=== PATIENT | female | born 1970 | race American Indian/Alaskan Native ===

== ENCOUNTER 2019-01-06 17:12 | Inpatient (IN) | payer OTHER ==
--- NOTE | 2019-01-06 17:40 | Emergency Department Report ---
Blank Doc - Documentation Documentation: This is a 48-year-old female that presents with chest pain with radiation of l eft arm. Denies any SOB. This initial assessment/diagnostic orders/clinical plan/treatment(s) is/are subject to change based on patient's health status, clinical progression and re- assessment by fellow clinical providers in the ED. Further treatment and workup at subsequent clinical providers discretion. Patient/guardians urged not to elope from the ED as their condition may be serious if not clinically assessed and managed. Initial orders include: 1- Patient sent to [facility] for further evaluation and treatment 2- labs 3- EKG 4- CXR
[2019-01-06 18:21] LABS: BUN/Creatinine Ratio 13; Blood Urea Nitrogen 9 mg/dL (7-17); Calcium 8.9 mg/dL (8.4-10.2); Hemolysis Index 0
[2019-01-06 18:29] LABS: Basophils # (Auto) 0.1 K/mm3 (0.0-0.1); Basophils % (Auto) 0.8 % (0.0-1.8); Eosinophils # (Auto) 0.2 K/mm3 (0.0-0.4); Lymphocytes # (Auto) 1.7 K/mm3 (1.2-5.4); Lymphocytes % (Auto) 21.4 % (13.4-35.0); Mean Corpuscular HGB Conc 30 % (30-34); Mean Corpuscular Volume 73 fl (79-97); Monocytes # (Auto) 0.4 K/mm3 (0.0-0.8); Platelet Count 335 K/mm3 (140-440); Red Blood Count 5.38 M/mm3 (3.65-5.03)
[2019-01-06 18:30] LABS: Hemoglobin 11.7 gm/dl (10.1-14.3); INR 1.01 (0.87-1.13)
[2019-01-06 18:31] LABS: Hematocrit 39.2 % (30.3-42.9); Partial Thromboplastin Time 26.7 Sec. (24.2-36.6); Red Cell Distribution Width 21.7 % (13.2-15.2)
--- NOTE | 2019-01-06 21:24 | XRay Report ---
PROCEDURE: XR CHEST ROUTINE 2V TECHNIQUE: PA and lateral chest radiographs were obtained. HISTORY: Chest Pain COMPARISONS: None. FINDINGS: The cardiomediastinal silhouette appears normal. The lungs are clear. The bones and soft tissues are unremarkable. IMPRESSION: No evidence of acute cardiopulmonary disease. This document is electronically signed by Ivory Cotton MD., January 06 2019 10:22:57 PM ET
[2019-01-06] MEDS ORDERED: TORADOL IM ONE (22:52)
[2019-01-06] MEDS ORDERED: PERCOCET 5/325 PO ONE (22:52)
[2019-01-06] MEDS ORDERED: FLEXERIL PO ONE (22:52)
--- NOTE | 2019-01-06 23:05 | Emergency Department Report ---
ED Neuro Deficit HPI - General Chief Complaint: Chest Pain Stated Complaint: CHEST PAIN/LFT SIDE NUMB Time Seen by Provider: 01/06/19 17:38 Source: patient Mode of arrival: Ambulatory Limitations: No Limitations - History of Present Illness Initial Comments: 48-year-old female with a past medical history of obesity and hypertension presents complaining of waking up at 4:30p with left-sided neck pain, left-sided chest pain, and left arm and left leg numbness. Symptoms are constant. Left lower chest pain sharp and worse with movement and inspiration. Patient complains of paresthesias with numbness to the left arm and left leg. Patient also complains of mild left-sided headache. Complains of nausea, vomiting, diaphoresis, calf tenderness, leg edema, or recent travel. 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 She is compliant with her blood pressure medication. She reports having a negative stress test last year. - Related Data Allergies/Adverse Reactions: Allergies Allergy/AdvReac Type Severity Reaction Status Date / Time No Known Allergies Allergy Unverified 01/06/19 17:43 ED Review of Systems ROS: Stated complaint: CHEST PAIN/LFT SIDE NUMB Other details as noted in HPI ED Past Medical Hx - Past Medical History Hx Hypertension: Yes Additional medical history: fibroids - Surgical History Additional Surgical History: ablastion - Social History Smoking Status: Never Smoker Substance Use Type: None ED Neuro Physical Exam - General Limitations: No Limitations Suspected Stroke: Yes - NIHSS Assessment Interval: Baseline 1a. Level of Consciousness: alert/keenly responsive 1b. LOC Questions: answers both correctly 1c. LOC Commands: performs tasks correctly 2. Best Gaze: normal 3. Visual: no visual loss 4. Facial Palsy: normal symmetrical movement 5b. Motor Arm Right: no drift 5a. Motor Arm Left: no drift 6a. Motor Leg Left: no drift 6b. Motor Leg Right: no drift 7. Limb Ataxia: absent 8. Sensory: mild/moderate sensory loss 9. Best Language: no aphasia 10. Dysarthria: normal 11. Extinction/Inattention: no abnormality Total Score: 1 Stroke Severity: Minor Stroke - Other Other exam information: General: No limitations, patient is alert in no acute distress Head exam: Atraumatic, normocephalic Eyes exam: Normal appearance, pupils equal reactive to light, extraocular movements intact ENT: Moist mucous membrane Neck exam: Normal inspection, full range of motion, no meningismus, left-sided trapezius muscle tenderness Respiratory exam: Clear to auscultation bilateral, no wheezes, rales, crackles Cardiovascular: Normal rate and rhythm, normal heart sounds Abdomen: Soft, nondistended, and nontender, with normal bowel sounds, no rebound, or guarding Extremity: Full range of motion normal inspection no deformity Back: Normal Inspection, full range of motion, no tenderness Neurologic: Alert, oriented x3, cranial nerves intact, decrease sensation to touch to the left arm and left leg. 5/5 upper and lower extremity strength Psychiatric: normal affect, normal mood Skin: Warm, dry, intact ED Course Vital Signs 01/06/19 01/07/19 01/07/19 17:39 00:14 00:21 Temperature 98.9 F Pulse Rate 92 H 89 Respiratory 16 18 18 Rate Blood Pressure 121/79 Blood Pressure 137/76 [Left] O2 Sat by Pulse 98 97 97 Oximetry - Lab Data Result diagrams: 01/06/19 17:49 01/06/19 17:49 Lab Results 01/06/19 01/06/19 01/06/19 Range/Units 17:49 17:49 17:49 WBC 7.9 (4.5-11.0) K/mm3 RBC 5.38 H (3.65-5.03) M/mm3 Hgb 11.7 (10.1-14.3) gm/dl Hct 39.2 (30.3-42.9) % MCV 73 L (79-97) fl MCH 22 L (28-32) pg MCHC 30 (30-34) % RDW 21.7 H (13.2-15.2) % Plt Count 335 (140-440) K/mm3 Lymph % (Auto) 21.4 (13.4-35.0) % Noble % (Auto) 5.0 (0.0-7.3) % Eos % (Auto) 2.0 (0.0-4.3) % Baso % (Auto) 0.8 (0.0-1.8) % Lymph # 1.7 (1.2-5.4) K/mm3 Noble # 0.4 (0.0-0.8) K/mm3 Eos # 0.2 (0.0-0.4) K/mm3 Baso # 0.1 (0.0-0.1) K/mm3 Seg Neutrophils % 70.8 H (40.0-70.0) % Seg Neutrophils # 5.6 (1.8-7.7) K/mm3 PT 13.9 (12.2-14.9) Sec. INR 1.01 (0.87-1.13) APTT 26.7 (24.2-36.6) Sec. D-Dimer (0-234) ng/mlDDU Sodium 138 (137-145) mmol/L Potassium 3.7 (3.6-5.0) mmol/L Chloride 105.1 (98-107) mmol/L Carbon Dioxide 22 (22-30) mmol/L Anion Gap 15 mmol/L BUN 9 (7-17) mg/dL Creatinine 0.7 (0.7-1.2) mg/dL Estimated GFR > 60 ml/min BUN/Creatinine Ratio 13 % Glucose 95 (65-100) mg/dL Calcium 8.9 (8.4-10.2) mg/dL Troponin T < 0.010 (0.00-0.029) ng/mL HCG, Qual (Negative) 01/06/19 01/06/19 01/06/19 Range/Units 17:49 17:49 22:52 WBC (4.5-11.0) K/mm3 RBC (3.65-5.03) M/mm3 Hgb (10.1-14.3) gm/dl Hct (30.3-42.9) % MCV (79-97) fl MCH (28-32) pg MCHC (30-34) % RDW (13.2-15.2) % Plt Count (140-440) K/mm3 Lymph % (Auto) (13.4-35.0) % Noble % (Auto) (0.0-7.3) % Eos % (Auto) (0.0-4.3) % Baso % (Auto) (0.0-1.8) % Lymph # (1.2-5.4) K/mm3 Noble # (0.0-0.8) K/mm3 Eos # (0.0-0.4) K/mm3 Baso # (0.0-0.1) K/mm3 Seg Neutrophils % (40.0-70.0) % Seg Neutrophils # (1.8-7.7) K/mm3 PT (12.2-14.9) Sec. INR (0.87-1.13) APTT (24.2-36.6) Sec. D-Dimer 243.59 H (0-234) ng/mlDDU Sodium (137-145) mmol/L Potassium (3.6-5.0) mmol/L Chloride (98-107) mmol/L Carbon Dioxide (22-30) mmol/L Anion Gap mmol/L BUN (7-17) mg/dL Creatinine (0.7-1.2) mg/dL Estimated GFR ml/min BUN/Creatinine Ratio % Glucose (65-100) mg/dL Calcium (8.4-10.2) mg/dL Troponin T < 0.010 (0.00-0.029) ng/mL HCG, Qual Negative (Negative) - EKG Data -: EKG Interpreted by Ia EKG shows normal: sinus rhythm, axis (qrs 1), QRS complexes (qrsd 85), ST-T waves (no stemi) Rate: normal (88) - Radiology Data Radiology results: report reviewed PROCEDURE: XR CHEST ROUTINE 2V TECHNIQUE: PA and lateral chest radiographs were obtained. HISTORY: Chest Pain COMPARISONS: None. FINDINGS: The cardiomediastinal silhouette appears normal. The lungs are clear. The bones and soft tissues are unremarkable. IMPRESSION: No evidence of acute cardiopulmonary disease. PROCEDURE: CT HEAD/BRAIN WO CON TECHNIQUE: Computerized tomography of the head was performed without contrast material. HISTORY: left arm and leg paresthesia COMPARISONS: None . FINDINGS: Skull and scalp: Normal . Paranasal sinuses: Normal . Ventricles and subarachnoid spaces: Normal . Cerebrum: No evidence of hemorrhage, acute infarction or mass . Cerebellum and brainstem: No evidence of hemorrhage, acute infarction or mass . Vasculature: Normal . Other: None . IMPRESSION: No evidence of hemorrhage, acute infarction or mass . PROCEDURE: CT CERVICAL SPINE WO CON TECHNIQUE: Computerized tomography of the cervical spine was performed from the skull base to T1 without contrast material. HISTORY: left arm and leg paresthesia COMPARISONS: None . FINDINGS: No acute fracture or subluxation. Vertebral body heights are maintained. Disc osteophyte complexes seen at C5/C6 and C6/C7 with mild central canal stenosis.. Other: No additional findings . IMPRESSION: No acute fracture or subluxation. Mild degenerative changes seen at C5/C6 and C6/C7. PROCEDURE: NM LUNG SCAN PERF/VENT TECHNIQUE: 5.5 mCi Tc-99m MAA was injected IV for pulmonary perfusion imaging in multiple projections. 21.8 mCi xenon-133 gas was inhaled for pulmonary ventilation imaging in multiple projections. Injection site: RIGHT antecubital fossa. HISTORY: left cp, mild ddimer elevation COMPARISONS: January 06, 2019 . FINDINGS: Perfusion: No defects . Ventilation: No defects . IMPRESSION: Normal Examination . - Medical Decision Making Patient has decreased sensation to the left arm and they wish any further evalu ation. Symptoms may be due to either a stroke or herniated disc dz. I feel patient should be admitted for stroke rule out since it involves the left upper and left lower extremity. Patient will be admitted to the hospitalist service for further CVA workup - Differential Diagnosis cervical radiculopathy, CVA, PE, MSK pain, NM, ICH, intracranial mass - Thrombolytic Inclusion/Exclusion Thrombolytic Exclusion Criteria: Symptom Onset > 3 Hours Critical Care Time: No Critical care attestation.: If time is entered above; I have spent that time in minutes in the direct care of this critically ill patient, excluding procedure time. ED Disposition Clinical Impression: Left sided numbness, Left-sided chest pain, Obesity, HTN (hypertension) Disposition: DC-09 OP ADMIT IP TO THIS HOSP Is pt being admited?: Yes Does the pt Need Aspirin: Yes Condition: Stable Instructions: Hypertension (ED) Time of Disposition: 01:37 (Dr. Avila/hospitalist)
[2019-01-06] MEDS ORDERED: TORADOL IV ONE (23:27)
--- NOTE | 2019-01-07 00:10 | Cat Scan Report ---
PROCEDURE: CT HEAD/BRAIN WO CON TECHNIQUE: Computerized tomography of the head was performed without contrast material. HISTORY: left arm and leg paresthesia COMPARISONS: None . FINDINGS: Skull and scalp: Normal . Paranasal sinuses: Normal . Ventricles and subarachnoid spaces: Normal . Cerebrum: No evidence of hemorrhage, acute infarction or mass . Cerebellum and brainstem: No evidence of hemorrhage, acute infarction or mass . Vasculature: Normal . Other: None . IMPRESSION: No evidence of hemorrhage, acute infarction or mass . This document is electronically signed by Jose Guadalupe Rodríguez MD., January 07 2019 01:08:49 AM ET
--- NOTE | 2019-01-07 00:12 | Cat Scan Report ---
PROCEDURE: CT CERVICAL SPINE WO CON TECHNIQUE: Computerized tomography of the cervical spine was performed from the skull base to T1 wit hout contrast material. HISTORY: left arm and leg paresthesia COMPARISONS: None . FINDINGS: No acute fracture or subluxation. Vertebral body heights are maintained. Disc osteophyte complexes seen at C5/C6 and C6/C7 with mild central canal stenosis.. Other: No additional findings . IMPRESSION: No acute fracture or subluxation. Mild degenerative changes seen at C5/C6 and C6/C7. This document is electronically signed by Jose Guadalupe Rodríguez MD., January 07 2019 01:10:28 AM ET
--- NOTE | 2019-01-07 01:28 | Nuclear Medicine Report ---
PROCEDURE: NM LUNG SCAN PERF/VENT TECHNIQUE: 5.5 mCi Tc-99m MAA was injected IV for pulmonary perfusion imaging in multiple projection s. 21.8 mCi xenon-133 gas was inhaled for pulmonary ventilation imaging in multiple projections. Inje ction site: RIGHT antecubital fossa. HISTORY: left cp, mild ddimer elevation COMPARISONS: January 06, 2019 . FINDINGS: Perfusion: No defects . Ventilation: No defects . IMPRESSION: Normal Examination . This document is electronically signed by Prudence Angulo DO., January 07 2019 02:26:14 AM ET
[2019-01-07] MEDS ORDERED: ASPIRIN PO ONE (01:38)
[2019-01-07] MEDS ORDERED: MORPHINE IV ONE (01:41)
[2019-01-07] MEDS ORDERED: ZOFRAN IV ONE (01:41)
[2019-01-07] MEDS ORDERED: BENADRYL IV ONE (01:42)
[2019-01-07] MEDS ORDERED: MORPHINE IV PRN (02:38)
[2019-01-07] MEDS ORDERED: SODIUM CHLORIDE FLUSH SYRINGE 10 ML IV PRN ×3 (02:38)
[2019-01-07] MEDS ORDERED: TYLENOL PO PRN ×2 (02:38)
[2019-01-07] MEDS ORDERED: NITROSTAT SL PRN (02:40)
[2019-01-07] MEDS ORDERED: APRESOLINE IV PRN (02:59)
--- NOTE | 2019-01-07 03:05 | History and Physical Report ---
<TAMIE OCAMPO - Last Filed: 01/07/19 03:27> History of Present Illness Date of examination: 01/07/19 Date of admission: 01/07/2019 Chief complaint: Left-sided headache, left upper and left lower extremity paresthesia History of present illness: 48-year-old Fisher Eel Spear who is an obese -[place] female with history of obesity, and hypertension presents to [facility] ED with complaints of left sided paraesthesia with numbness. Pt states that her symptoms began when she woke up from a nap around 4:30pm yesterday afternoon. She experienced left sided blurred vision, left-sided neck pain, left-sided nonradiating chest pain, left calf pain, and left arm and left leg numbness. She states that her symptoms have not resolved. She describes her chest pain as sharp and rates it 9/10. Her chest pain is aggravated with movement and relieved with rest. She reports that her headache is mild 3/10, and there are no aggravating or relieving factors. Pt reports having a stress test done last year and it was negative. Denies: cough, hemoptysis, fever, nausea, vomiting, diaphoresis, recent travel, recent sick exposure. Past History Past Medical History: hypertension, other ( fibroids) Past Surgical History: Other (uterine ablation) Social history: lives with family Family history: no significant family history Medications and Allergies Allergies Allergy/AdvReac Type Severity Reaction Status Date / Time No Known Allergies Allergy Unverified 01/06/19 17:43 Active Meds: Active Medications Acetaminophen (Tylenol) 650 mg PO Q4H PRN PRN Reason: Pain MILD(1-3)/Fever >100.5/ARNDT Acetaminophen (Tylenol) 650 mg PO Q4H PRN PRN Reason: Pain, Mild (1-3) Aspirin (Aspirin) 325 mg PO QDAY YECENIA Aspirin (Baby Aspirin) 81 mg PO QDAY YECENIA Atorvastatin Calcium (Lipitor) 20 mg PO QHS YECENIA Enoxaparin Sodium (Lovenox) 40 mg SUB-Q QDAY YECENIA Hydralazine HCl (Apresoline) 10 mg IV Q4HR PRN PRN Reason: Blood Pressure Hydromorphone HCl (Dilaudid) 0.5 mg IV Q3H PRN PRN Reason: Pain , Severe (7-10) Stop: 01/07/19 23:59 Morphine Sulfate (Morphine) 2 mg IV Q4H PRN PRN Reason: Pain, Moderate (4-6) Stop: 01/07/19 23:59 Nitroglycerin (Nitrostat) 0.4 mg SL Q5M PRN PRN Reason: Chest Pain Ondansetron HCl (Zofran) 4 mg IV Q8H PRN PRN Reason: Nausea And Vomiting Sodium Chloride (Sodium Chloride Flush Syringe 10 Ml) 10 ml IV BID YECENIA Sodium Chloride (Sodium Chloride Flush Syringe 10 Ml) 10 ml IV PRN PRN PRN Reason: LINE FLUSH Sodium Chloride (Sodium Chloride Flush Syringe 10 Ml) 10 ml INJ PRN PRN PRN Reason: LINE FLUSH Sodium Chloride (Sodium Chloride Flush Syringe 10 Ml) 10 ml IV PRN PRN PRN Reason: LINE FLUSH Review of Systems All systems: negative (reviewed no additional remarkable complaints except as noted below) Eyes: left: blurred vision (slightly blurred) Cardiovascular: chest pain (left-sided nonradiating) Musculoskeletal: arm numbness/tingling (left-sided), leg numbness/tingling (left-sided) Neurological: headaches (left sided) Exam - Physical Exam Narrative exam: Physical exam General appearance: Present: No acute distress, alert and oriented 3, obese, pleasant, adult female - EENT Eyes: Present: PERRL, EOM intact ENT: hearing intact, normal dentition - Neck Neck: Present: supple, normal ROM - Respiratory Respiratory effort: Non-labored Respiratory: bilateral: diminished (bases) - Cardiovascular Heart rate: 88 (bpm) Rhythm: Sinus rhythm , regular Heart Sounds: Present: S1 & S2. Absent: rub, click - Extremities Extremities: no ischemia, pulses intact, abnormal (trace edema to left lower extremity) - Peripheral Assessment Peripheral Pulses: within normal limits - Abdominal General gastrointestinal: Obese, soft, non-tender, normal bowel sounds x4 - Integumentary Integumentary: Present: warm, dry - Musculoskeletal Musculoskeletal: Able to move all extremities - Psychiatric Psychiatric: cooperative - Constitutional Vitals: Temp Pulse Resp BP Pulse Ox 98.9 F 77 18 116/56 97 01/06/19 17:39 01/07/19 02:03 01/07/19 02:03 01/07/19 02:03 01/07/19 02:03 Results - Labs CBC & Chem 7: 01/06/19 17:49 01/06/19 17:49 Labs: Laboratory Last Values WBC 7.9 K/mm3 (4.5-11.0) 01/06/19 17:49 RBC 5.38 M/mm3 (3.65-5.03) H 01/06/19 17:49 Hgb 11.7 gm/dl (10.1-14.3) 01/06/19 17:49 Hct 39.2 % (30.3-42.9) 01/06/19 17:49 MCV 73 fl (79-97) L 01/06/19 17:49 MCH 22 pg (28-32) L 01/06/19 17:49 MCHC 30 % (30-34) 01/06/19 17:49 RDW 21.7 % (13.2-15.2) H 01/06/19 17:49 Plt Count 335 K/mm3 (140-440) 01/06/19 17:49 Lymph % (Auto) 21.4 % (13.4-35.0) 01/06/19 17:49 Haskell % (Auto) 5.0 % (0.0-7.3) 01/06/19 17:49 Eos % (Auto) 2.0 % (0.0-4.3) 01/06/19 17:49 Baso % (Auto) 0.8 % (0.0-1.8) 01/06/19 17:49 Lymph # 1.7 K/mm3 (1.2-5.4) 01/06/19 17:49 Haskell # 0.4 K/mm3 (0.0-0.8) 01/06/19 17:49 Eos # 0.2 K/mm3 (0.0-0.4) 01/06/19 17:49 Baso # 0.1 K/mm3 (0.0-0.1) 01/06/19 17:49 Seg Neutrophils % 70.8 % (40.0-70.0) H 01/06/19 17:49 Seg Neutrophils # 5.6 K/mm3 (1.8-7.7) 01/06/19 17:49 PT 13.9 Sec. (12.2-14.9) 01/06/19 17:49 INR 1.01 (0.87-1.13) 01/06/19 17:49 APTT 26.7 Sec. (24.2-36.6) 01/06/19 17:49 243.59 ng/mlDDU (0-234) H 01/06/19 17:49 Sodium 138 mmol/L (137-145) 01/06/19 17:49 Potassium 3.7 mmol/L (3.6-5.0) 01/06/19 17:49 Chloride 105.1 mmol/L (98-107) 01/06/19 17:49 Carbon Dioxide 22 mmol/L (22-30) 01/06/19 17:49 15 mmol/L 01/06/19 17:49 BUN 9 mg/dL (7-17) 01/06/19 17:49 0.7 mg/dL (0.7-1.2) 01/06/19 17:49 Estimated GFR > 60 ml/min 01/06/19 17:49 13 % 01/06/19 17:49 Glucose 95 mg/dL (65-100) 01/06/19 17:49 Calcium 8.9 mg/dL (8.4-10.2) 01/06/19 17:49 < 0.010 ng/mL (0.00-0.029) 01/06/19 22:52 HCG, Qual Negative (Negative) 01/06/19 17:49 - Imaging and Cardiology EKG: image reviewed (sinus rhythm, 80 bpm) Chest x-ray: report reviewed (No evidence of acute cardiopulmonary disease. ), image reviewed CT Scan - head: report reviewed (No evidence of hemorrhage, acute infarction or mass ), image reviewed Imaging and Cardiology: CT Cervical Spine: Findings: No acute fracture or subluxation. Mild degenerative changes seen at C5/C6 and C6/C7. V/Q Scan: Perfusion: No defects . Ventilation: No defects . IMPRESSION: Normal Examination . 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 EKG showed sinus rhythm at 80bpm, unrevealing for acute ischemic abnormalities. CXR unrevealing for acute cardiopulmonary abnormalities. CT head did not reveal any evidence of hemorrhage, acute infarct,or mass. CT Cervical Spine showed mild degenerative changes at C5/C6 and C6/C7. D-Dimer slightly elevated at 243.59. V/Q scan did not reveal any defects in ventilation perfusion. Pt will be admitted to Telemetry unit for further evaluation. Acute Chest Pain R/O ACS Lt sided numbness R/O CVA R/O DVT HTN Obesity Plan: Continue Supportive Care Initiate stroke protocol Neurochecks per stroke protocol Pain management NPO Lexiscan pending Bilateral LLE Doppler pending MRI/MRA Brain pending Neurology Consult pending Monitor BP IV hydralazine when necessary Start ASA, Statin May benefit from OP weight management program DVT PPX on Lovenox and SCD's Medication Reconciliation pending Advance Directives: No VTE prophylaxis?: Chemical Plan of care discussed with patient/family: Yes <BRENTON ARENAS - Last Filed: 01/07/19 06:48> History of Present Illness Date of admission: 01/07/19 02:38 Medications and Allergies Active Meds: Active Medications Acetaminophen (Tylenol) 650 mg PO Q4H PRN PRN Reason: Pain, Mild (1-3) Aspirin (Baby Aspirin) 81 mg PO QDAY YECENIA Atorvastatin Calcium (Lipitor) 20 mg PO QHS YECENIA Enoxaparin Sodium (Lovenox) 40 mg SUB-Q QDAY YECENIA Hydralazine HCl (Apresoline) 10 mg IV Q4H PRN PRN Reason: Blood Pressure Hydromorphone HCl (Dilaudid) 0.5 mg IV Q3H PRN PRN Reason: Pain , Severe (7-10) Stop: 01/07/19 23:59 Morphine Sulfate (Morphine) 2 mg IV Q4H PRN PRN Reason: Pain, Moderate (4-6) Stop: 01/07/19 23:59 Nitroglycerin (Nitrostat) 0.4 mg SL Q5M PRN PRN Reason: Chest Pain Ondansetron HCl (Zofran) 4 mg IV Q8H PRN PRN Reason: Nausea And Vomiting Sodium Chloride (Sodium Chloride Flush Syringe 10 Ml) 10 ml IV BID YECENIA Sodium Chloride (Sodium Chloride Flush Syringe 10 Ml) 10 ml IV PRN PRN PRN Reason: LINE FLUSH Exam - Constitutional Vitals: Temp Pulse Resp BP Pulse Ox 98.7 F 82 20 107/53 96 01/07/19 04:23 01/07/19 04:23 01/07/19 04:23 01/07/19 04:23 01/07/19 04:23 Results - Labs CBC & Chem 7: 01/06/19 17:49 01/06/19 17:49 Labs: Laboratory Last Values WBC 7.9 K/mm3 (4.5-11.0) 01/06/19 17:49 RBC 5.38 M/mm3 (3.65-5.03) H 01/06/19 17:49 Hgb 11.7 gm/dl (10.1-14.3) 01/06/19 17:49 Hct 39.2 % (30.3-42.9) 01/06/19 17:49 MCV 73 fl (79-97) L 01/06/19 17:49 MCH 22 pg (28-32) L 01/06/19 17:49 MCHC 30 % (30-34) 01/06/19 17:49 RDW 21.7 % (13.2-15.2) H 01/06/19 17:49 Plt Count 335 K/mm3 (140-440) 01/06/19 17:49 Lymph % (Auto) 21.4 % (13.4-35.0) 01/06/19 17:49 Haskell % (Auto) 5.0 % (0.0-7.3) 01/06/19 17:49 Eos % (Auto) 2.0 % (0.0-4.3) 01/06/19 17:49 Baso % (Auto) 0.8 % (0.0-1.8) 01/06/19 17:49 Lymph # 1.7 K/mm3 (1.2-5.4) 01/06/19 17:49 Haskell # 0.4 K/mm3 (0.0-0.8) 01/06/19 17:49 Eos # 0.2 K/mm3 (0.0-0.4) 01/06/19 17:49 Baso # 0.1 K/mm3 (0.0-0.1) 01/06/19 17:49 Seg Neutrophils % 70.8 % (40.0-70.0) H 01/06/19 17:49 Seg Neutrophils # 5.6 K/mm3 (1.8-7.7) 01/06/19 17:49 PT 13.9 Sec. (12.2-14.9) 01/06/19 17:49 INR 1.01 (0.87-1.13) 01/06/19 17:49 APTT 26.7 Sec. (24.2-36.6) 01/06/19 17:49 243.59 ng/mlDDU (0-234) H 01/06/19 17:49 Sodium 138 mmol/L (137-145) 01/06/19 17:49 Potassium 3.7 mmol/L (3.6-5.0) 01/06/19 17:49 Chloride 105.1 mmol/L (98-107) 01/06/19 17:49 Carbon Dioxide 22 mmol/L (22-30) 01/06/19 17:49 15 mmol/L 01/06/19 17:49 BUN 9 mg/dL (7-17) 01/06/19 17:49 0.7 mg/dL (0.7-1.2) 01/06/19 17:49 Estimated GFR > 60 ml/min 01/06/19 17:49 13 % 01/06/19 17:49 Glucose 95 mg/dL (65-100) 01/06/19 17:49 5.8 % (4-6) 01/07/19 Unknown Calcium 8.9 mg/dL (8.4-10.2) 01/06/19 17:49 < 0.010 ng/mL (0.00-0.029) 01/06/19 22:52 HCG, Qual Negative (Negative) 01/06/19 17:49 Assessment and Plan Assessment and plan: 48-year-old lady come emergency room with complaints of right-sided chest pain and left-sided numbness. Agree with as discussed above except add echo
[2019-01-07] MEDS ORDERED: ASPIRIN PO SCH (10:00)
--- NOTE | 2019-01-07 10:07 | Vascular Lab Report ---
PROCEDURE: VL VENOUS DUPLEX LE BILAT TECHNIQUE: Duplex Doppler sonography of the BILATERAL lower extremities. Thomas scale imaging with and without compression, spectral waveform analysis with and without augmentation, and color flow Dopple r were employed. HISTORY: LLE edema, CP COMPARISONS: None FINDINGS: RIGHT LOWER EXTREMITY: Deep Venous Thrombus: None Superficial Venous Thrombus: None Venous valvular incompetence: None Soft tissue abnormality: None LEFT LOWER EXTREMITY: Deep Venous Thrombus: None Superficial Venous Thrombus: None Venous valvular incompetence: None Soft tissue abnormality: None IMPRESSION: No evidence of deep venous thrombosis in the bilateral lower extremities. This document is electronically signed by Laura Moon MD., January 07 2019 11:04:45 AM ET
[2019-01-07] MEDS: LOVENOX SUB-Q SCH (11:52)
[2019-01-07] MEDS: SODIUM CHLORIDE FLUSH SYRINGE 10 ML IV SCH ×2 (11:52→21:59)
[2019-01-07] MEDS: DILAUDID IV PRN ×2 (11:55→22:04)
--- NOTE | 2019-01-07 14:10 | Consultation ---
Past History Past Medical History: hypertension, other ( fibroids) Past Surgical History: Other (uterine ablation) Social history: lives with family Family history: no significant family history Medications and Allergies Allergies Allergy/AdvReac Type Severity Reaction Status Date / Time No Known Allergies Allergy Unverified 01/06/19 17:43 Active Meds: Active Medications Acetaminophen (Tylenol) 650 mg PO Q4H PRN PRN Reason: Pain, Mild (1-3) Aspirin (Baby Aspirin) 81 mg PO QDAY [facility] Atorvastatin Calcium (Lipitor) 20 mg PO QHS [facility] Cyclobenzaprine HCl (Flexeril) 5 mg PO BID [facility] Enoxaparin Sodium (Lovenox) 40 mg SUB-Q QDAY [facility] Last Admin: 01/07/19 11:52 Dose: 40 mg Documented by: Hydralazine HCl (Apresoline) 10 mg IV Q4H PRN PRN Reason: Blood Pressure Hydromorphone HCl (Dilaudid) 0.5 mg IV Q3H PRN PRN Reason: Pain , Severe (7-10) Stop: 01/07/19 23:59 Last Admin: 01/07/19 11:55 Dose: 0.5 mg Documented by: Morphine Sulfate (Morphine) 2 mg IV Q4H PRN PRN Reason: Pain, Moderate (4-6) Stop: 01/07/19 23:59 Nitroglycerin (Nitrostat) 0.4 mg SL Q5M PRN PRN Reason: Chest Pain Ondansetron HCl (Zofran) 4 mg IV Q8H PRN PRN Reason: Nausea And Vomiting Sodium Chloride (Sodium Chloride Flush Syringe 10 Ml) 10 ml IV BID [facility] Last Admin: 01/07/19 11:52 Dose: 10 ml Documented by: Sodium Chloride (Sodium Chloride Flush Syringe 10 Ml) 10 ml IV PRN PRN PRN Reason: LINE FLUSH Physical Examination - Vital Signs Vital Signs: Vital Signs Temp Pulse Resp BP Pulse Ox 98.9 F 92 H 16 121/79 98 01/06/19 17:39 01/06/19 17:39 01/06/19 17:39 01/06/19 17:39 01/06/19 17:39 Results - Laboratory Findings CBC and BMP: 01/06/19 17:49 01/06/19 17:49 Abnormal Lab Findings: Abnormal Labs 01/06/19 01/06/19 17:49 17:49 RBC 5.38 H MCV 73 L MCH 22 L RDW 21.7 H Seg Neutrophils % 70.8 H D-Dimer 243.59 H Assessment and Plan This is a Dr. Cruz dictating the consult report on Bhavna Be. Ms. Be is a 48-year-old female with history of hypertension, morbid obesity, who came to the hospital with the complaint of waking up at 4:30 PM with left- sided neck pain, left-sided chest pain and left upper and lower extremity numbne ss. She also complained of headache on the left side of the head. 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 Patient states her neck pain gets worse on movement of the left upper extremity and sneezing and cough and straining during bowel movement also makes back pain worse. Patient states that her neck pain radiates intermittently to her left arm and hand and back pain intermittently radiates to her left leg and foot. After admission she had a CT scan of the brain which was reported to be normal and also had a CT scan of the cervical spine showed disc osteophyte complexes at C5-C6 and C6 and C7 levels. Patient could not get MRI on regular machine as she was morbidly obese. Physical examination. Patient is in no acute distress however complains of neck pain and head pain on the left side. Heart. Normal rate and rhythm. Carotids:Both Palpable. Cranial nerves. All cranial nerves are within normal limit. Motor. Patient has left deltoid,left biceps and left triceps muscles as compared to the right,she has weak left dorsiflexion and left plantarflexion as well as weak left Extensor hallucis longus muscle as compared to the right. Sensory. Patient has decreased sensation to pinprick on left C5-C6 and C7 dermatomes. She has decreased sensation to pin prick on left L4, L5 and S1 dermatomes. Reflexes. She has decreased left biceps,left triceps and left brachioradialis reflexes on the left side and also has decreased left knee reflex as well as de creased left ankle reflexes as compared to the right side. Straight leg raising was limited to 30 on the left side. Impression. #1 multiple cervical radiculopathies involving left C5-C6 and C7 nerve roots most likely from disc problem. #2. Left lumbar and lumbosacral radiculopathies involving left L4, L5 and S1 nerve roots most likely from disc and or disc osteophyte complexe s. #3. Patient's left-sided headache is an extension of the cervical spinal muscles stiffness going up into the left side of the cranial vault. Recommendation: # 1.Patient should be given Flexeril 5 mg by mouth twice a day and I ibuprofen 500 mg by mouth twice a day. #2 #2 patient should get open MRI or to look for disc problem and based on the MRI finding whether neurosurgical intervention or continued physical therapy would be decided. In the mean time PT/OT consult should be placed, . #3 patient should avoid pushing pulling and lifting more than 10-15 pounds. And should avoid prolonged sitting and prolonged standing.
--- NOTE | 2019-01-07 14:34 | Progress Note ---
History Interval history: Patient was seen and developed this morning, patient complaining chest pain, and numbness left upper and lower extremity. Hospitalist Physical - Physical exam Narrative exam: Not in cardiopulmonary distress. The patient is morbidly obese. Vital signs as documented. Head exam is unremarkable. No scleral icterus . Neck is without jugular venous distension, thyromegaly, or carotid bruits. Chest reprocucible chest pain. Lungs are clear to auscultation. Cardiac exam reveals regular rate and Rhythm. First and second heart sounds normal. No murmurs, rubs or gallops. Abdominal exam reveals normal bowel sounds, no masses, no organomegaly and no aortic enlargement. Extremities are nonedematous and both femoral and pedal pulses are normal. 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 No focal weakness. - Constitutional Vitals: Temp Pulse Resp BP Pulse Ox 97.9 F 83 18 110/55 95 01/07/19 11:42 01/07/19 11:42 01/07/19 11:42 01/07/19 11:42 01/07/19 11:42 Results - Labs CBC & Chem 7: 01/06/19 17:49 01/06/19 17:49 Labs: Laboratory Last Values WBC 7.9 K/mm3 (4.5-11.0) 01/06/19 17:49 RBC 5.38 M/mm3 (3.65-5.03) H 01/06/19 17:49 Hgb 11.7 gm/dl (10.1-14.3) 01/06/19 17:49 Hct 39.2 % (30.3-42.9) 01/06/19 17:49 MCV 73 fl (79-97) L 01/06/19 17:49 MCH 22 pg (28-32) L 01/06/19 17:49 MCHC 30 % (30-34) 01/06/19 17:49 RDW 21.7 % (13.2-15.2) H 01/06/19 17:49 Plt Count 335 K/mm3 (140-440) 01/06/19 17:49 Lymph % (Auto) 21.4 % (13.4-35.0) 01/06/19 17:49 [place] % (Auto) 5.0 % (0.0-7.3) 01/06/19 17:49 Eos % (Auto) 2.0 % (0.0-4.3) 01/06/19 17:49 Baso % (Auto) 0.8 % (0.0-1.8) 01/06/19 17:49 Lymph # 1.7 K/mm3 (1.2-5.4) 01/06/19 17:49 [place] # 0.4 K/mm3 (0.0-0.8) 01/06/19 17:49 Eos # 0.2 K/mm3 (0.0-0.4) 01/06/19 17:49 Baso # 0.1 K/mm3 (0.0-0.1) 01/06/19 17:49 Seg Neutrophils % 70.8 % (40.0-70.0) H 01/06/19 17:49 Seg Neutrophils # 5.6 K/mm3 (1.8-7.7) 01/06/19 17:49 PT 13.9 Sec. (12.2-14.9) 01/06/19 17:49 INR 1.01 (0.87-1.13) 01/06/19 17:49 APTT 26.7 Sec. (24.2-36.6) 01/06/19 17:49 243.59 ng/mlDDU (0-234) H 01/06/19 17:49 Sodium 138 mmol/L (137-145) 01/06/19 17:49 Potassium 3.7 mmol/L (3.6-5.0) 01/06/19 17:49 Chloride 105.1 mmol/L (98-107) 01/06/19 17:49 Carbon Dioxide 22 mmol/L (22-30) 01/06/19 17:49 15 mmol/L 01/06/19 17:49 BUN 9 mg/dL (7-17) 01/06/19 17:49 0.7 mg/dL (0.7-1.2) 01/06/19 17:49 Estimated GFR > 60 ml/min 01/06/19 17:49 13 % 01/06/19 17:49 Glucose 95 mg/dL (65-100) 01/06/19 17:49 5.8 % (4-6) 01/07/19 Unknown Calcium 8.9 mg/dL (8.4-10.2) 01/06/19 17:49 < 0.010 ng/mL (0.00-0.029) 01/06/19 22:52 HCG, Qual Negative (Negative) 01/06/19 17:49 Active Medications - Current Medications Current Medications: Generic Name Dose Route Start Last Admin Trade Name Freq PRN Reason Stop Dose Admin Acetaminophen 650 mg 01/07/19 02:38 Tylenol PO Q4H PRN Pain, Mild (1-3) Aspirin 81 mg 01/08/19 10:00 Baby Aspirin PO QDAY [facility] Atorvastatin Calcium 20 mg 01/07/19 22:00 Lipitor PO QHS [facility] Cyclobenzaprine HCl 5 mg 01/07/19 14:00 Flexeril PO BID [facility] Enoxaparin Sodium 40 mg 01/07/19 10:00 01/07/19 11:52 Lovenox SUB-Q 40 mg QDAY [facility] Administration Hydralazine HCl 10 mg 01/07/19 02:59 Apresoline IV Q4H PRN Blood Pressure Hydromorphone HCl 0.5 mg 01/07/19 02:40 01/07/19 11:55 Dilaudid IV 01/07/19 23:59 0.5 mg Q3H PRN Administration Pain , Severe (7-10) Morphine Sulfate 2 mg 01/07/19 02:38 Morphine IV 01/07/19 23:59 Q4H PRN Pain, Moderate (4-6) Nitroglycerin 0.4 mg 01/07/19 02:40 Nitrostat SL Q5M PRN Chest Pain Ondansetron HCl 4 mg 01/07/19 02:38 Zofran IV Q8H PRN Nausea And Vomiting Sodium Chloride 10 ml 01/07/19 10:00 01/07/19 11:52 Sodium Chloride Flush Syringe 10 Ml IV 10 ml BID [facility] Administration Sodium Chloride 10 ml 01/07/19 02:38 Sodium Chloride Flush Syringe 10 Ml IV PRN PRN LINE FLUSH
--- NOTE | 2019-01-07 16:00 | Event Note ---
Date: 01/07/19 Patient was standing on it this morning, patient is complaining numbness in the left upper and lower extremity, and progressive chest pain. VQ scan is negative. Neurology consulted and recommended MRI of the cervical spine and lumbosacral area. Patient is obese and doesn't fit to the machine and will be transport to open MRI. Discussed with case picker.
[2019-01-07] MEDS: FLEXERIL PO SCH ×2 (19:01→21:58)
[2019-01-07 19:24] LABS: Bilirubin,Urine NEG (Negative); Blood,Urine LG (Negative); Color,Urine Yellow (Yellow); Mucus,Urine 2+ /HPF; Protein,Urine <15 mg/dL mg/dL (Negative)
[2019-01-07] MEDS: ZOFRAN IV PRN (22:10)
[2019-01-08 06:48] LABS: Basophils # (Auto) 0.1 K/mm3 (0.0-0.1); Eosinophils # (Auto) 0.3 K/mm3 (0.0-0.4); Eosinophils % (Auto) 3.5 % (0.0-4.3); Lymphocytes # (Auto) 2.2 K/mm3 (1.2-5.4); Mean Corpuscular HGB Conc 31 % (30-34); Mean Corpuscular Volume 73 fl (79-97); Monocytes # (Auto) 0.5 K/mm3 (0.0-0.8); Monocytes % (Auto) 6.3 % (0.0-7.3); Platelet Count 445 K/mm3 (140-440); Red Blood Count 3.09 M/mm3 (3.65-5.03)
[2019-01-08 06:49] LABS: Red Cell Distribution Width 21.5 % (13.2-15.2)
[2019-01-08 06:59] LABS: Hematocrit 22.6 % (30.3-42.9); Hemoglobin 6.9 gm/dl (10.1-14.3)
[2019-01-08 07:41] LABS: BUN/Creatinine Ratio 13; Blood Urea Nitrogen 9 mg/dL (7-17); Calcium 8.1 mg/dL (8.4-10.2); Chol/HDL Ratio 3.39 %; HDL Cholesterol 38 mg/dL (40-59); Hemolysis Index 16; LDL Cholesterol,Direct 83 mg/dL (50-130)
[2019-01-08 08:39] LABS: Hematocrit 23.2 % (30.3-42.9); Hemoglobin 6.9 gm/dl (10.1-14.3); Mean Corpuscular HGB Conc 30 % (30-34); Mean Corpuscular Volume 73 fl (79-97); Platelet Count 450 K/mm3 (140-440); Red Blood Count 3.16 M/mm3 (3.65-5.03)
[2019-01-08 08:40] LABS: Red Cell Distribution Width 21.5 % (13.2-15.2)
[2019-01-08] MEDS: ZOFRAN IV PRN (11:09)
[2019-01-08] MEDS: FLEXERIL PO SCH ×2 (11:09→21:53)
[2019-01-08] MEDS: LOVENOX SUB-Q SCH (11:09)
[2019-01-08] MEDS: SODIUM CHLORIDE FLUSH SYRINGE 10 ML IV SCH ×2 (11:10→22:00)
[2019-01-08] MEDS: BABY ASPIRIN PO SCH ×2 (11:10→21:53)
[2019-01-08] MEDS ORDERED: NON-FORMULARY (Hydroxyzine Hcl [Hydroxyzine] 50 MG) PO PRN (11:57)
--- NOTE | 2019-01-08 12:05 | Progress Note ---
Assessment and Plan Assessment and plan: Numbness of left upper and lower extremities - CT head was negative - MRI was not done because of her body size - Echo done and pending result - Neurology consulted and said it is due to cervical and lumbosacral radiculopathy, he ordered MRI of the cervical and lumbar area - Patient presented to our MRI machine because of her body size and patient was sent for open MRI Anxiety disorder, depression - Continue home Zoloft and hydroxyzine Hypertension - Patient's blood pressure is on the lower side of normal and held amlodipine for now Morbid obesity - Patient counselled about weight loss Chest pain - Cardiac enzymes are negative, EKG normal - Echo and stress test is pending DVT prophylaxis - On Lovenox Disposition - Pending outpatient MRI of the cervical and lumbosacral area. History Interval history: Patient was seen and about 2 this morning, patient is complaining membranous in the left upper and lower extremity. Complaining chest pain. Hospitalist Physical - Physical exam Narrative exam: Not in cardiopulmonary distress. The patient is morbidly obese. Vital signs as documented. Head exam is unremarkable. No scleral icterus . Neck is without jugular venous distension, thyromegaly, or carotid bruits. Lungs are clear to auscultation. Cardiac exam reveals regular rate and Rhythm. Abdominal exam reveals normal bowel sounds. Extremities are nonedematous and both femoral and pedal pulses are normal. MANAGER PLAY: Alert and oriented 3. No focal weakness. - Constitutional Vitals: Temp Pulse Resp BP Pulse Ox 98.4 F 79 16 115/63 99 01/08/19 07:42 01/08/19 07:42 01/08/19 07:42 01/08/19 07:42 01/08/19 07:42 Results - Labs CBC & Chem 7: 01/08/19 07:43 01/08/19 05:53 Labs: Laboratory Last Values WBC 8.8 K/mm3 (4.5-11.0) 01/08/19 07:43 RBC 3.16 M/mm3 (3.65-5.03) L 01/08/19 07:43 Hgb 6.9 gm/dl (10.1-14.3) L 01/08/19 07:43 Hct 23.2 % (30.3-42.9) L 01/08/19 07:43 MCV 73 fl (79-97) L 01/08/19 07:43 MCH 22 pg (28-32) L 01/08/19 07:43 MCHC 30 % (30-34) 01/08/19 07:43 RDW 21.5 % (13.2-15.2) H 01/08/19 07:43 Plt Count 450 K/mm3 (140-440) H 01/08/19 07:43 Lymph % (Auto) 27.0 % (13.4-35.0) 01/08/19 05:55 [place] % (Auto) 6.3 % (0.0-7.3) 01/08/19 05:55 Eos % (Auto) 3.5 % (0.0-4.3) 01/08/19 05:55 Baso % (Auto) 1.0 % (0.0-1.8) 01/08/19 05:55 Lymph # 2.2 K/mm3 (1.2-5.4) 01/08/19 05:55 [place] # 0.5 K/mm3 (0.0-0.8) 01/08/19 05:55 Eos # 0.3 K/mm3 (0.0-0.4) 01/08/19 05:55 Baso # 0.1 K/mm3 (0.0-0.1) 01/08/19 05:55 Seg Neutrophils % 62.2 % (40.0-70.0) 01/08/19 05:55 Seg Neutrophils # 5.1 K/mm3 (1.8-7.7) 01/08/19 05:55 PT 13.9 Sec. (12.2-14.9) 01/06/19 17:49 INR 1.01 (0.87-1.13) 01/06/19 17:49 APTT 26.7 Sec. (24.2-36.6) 01/06/19 17:49 243.59 ng/mlDDU (0-234) H 01/06/19 17:49 Sodium 138 mmol/L (137-145) 01/08/19 05:53 Potassium 4.5 mmol/L (3.6-5.0) D 01/08/19 05:53 Chloride 103.9 mmol/L (98-107) 01/08/19 05:53 Carbon Dioxide 23 mmol/L (22-30) 01/08/19 05:53 16 mmol/L 01/08/19 05:53 BUN 9 mg/dL (7-17) 01/08/19 05:53 0.7 mg/dL (0.7-1.2) 01/08/19 05:53 Estimated GFR > 60 ml/min 01/08/19 05:53 13 % 01/08/19 05:53 Glucose 102 mg/dL (65-100) H 01/08/19 05:53 5.8 % (4-6) 01/07/19 Unknown Calcium 8.1 mg/dL (8.4-10.2) L 01/08/19 05:53 < 0.010 ng/mL (0.00-0.029) 01/06/19 22:52 Triglycerides 54 mg/dL (2-149) 01/08/19 05:53 Cholesterol 129 mg/dL (50-199) 01/08/19 05:53 83 mg/dL (50-130) 01/08/19 05:53 38 mg/dL (40-59) L 01/08/19 05:53 3.39 % 01/08/19 05:53 HCG, Qual Negative (Negative) 01/06/19 17:49 Yellow (Yellow) 01/07/19 17:40 Clear (Clear) 01/07/19 17:40 5.0 (5.0-7.0) 01/07/19 17:40 Ur Specific [place] 1.019 (1.003-1.030) 01/07/19 17:40 <15 mg/dl mg/dL (Negative) 01/07/19 17:40 Neg mg/dL (Negative) 01/07/19 17:40 Neg mg/dL (Negative) 01/07/19 17:40 Lg (Negative) 01/07/19 17:40 Neg (Negative) 01/07/19 17:40 Neg (Negative) 01/07/19 17:40 2.0 mg/dL (<2.0) 01/07/19 17:40 Ur Leukocyte Esterase Neg (Negative) 01/07/19 17:40 4.0 /HPF (0.0-6.0) 01/07/19 17:40 12.0 /HPF (0.0-6.0) 01/07/19 17:40 U Epithel Cells (Auto) 2.0 /HPF (0-13.0) 01/07/19 17:40 2+ /HPF 01/07/19 17:40 Active Medications - Current Medications Current Medications: Generic Name Dose Route Start Last Admin Trade Name Freq PRN Reason Stop Dose Admin Acetaminophen 650 mg 01/07/19 02:38 Tylenol PO Q4H PRN Pain, Mild (1-3) Aspirin 81 mg 01/08/19 10:00 01/08/19 11:10 Baby Aspirin PO Not Given QDAY [facility] Atorvastatin Calcium 20 mg 01/07/19 22:00 01/07/19 21:58 Lipitor PO 20 mg QHS [facility] Administration Cyclobenzaprine HCl 5 mg 01/07/19 14:00 01/08/19 11:09 Flexeril PO 5 mg BID [facility] Administration Enoxaparin Sodium 40 mg 01/07/19 10:00 01/08/19 11:09 Lovenox SUB-Q 40 mg QDAY [facility] Administration Hydralazine HCl 10 mg 01/07/19 02:59 Apresoline IV Q4H PRN Blood Pressure Ibuprofen 600 mg 01/07/19 15:52 Ibuprofen PO Q8H PRN Pain, Mild (1-3) Nitroglycerin 0.4 mg 01/07/19 02:40 Nitrostat SL Q5M PRN Chest Pain Ondansetron HCl 4 mg 01/07/19 02:38 01/08/19 11:09 Zofran IV 4 mg Q8H PRN Administration Nausea And Vomiting Sodium Chloride 10 ml 01/07/19 10:00 01/08/19 11:10 Sodium Chloride Flush Syringe 10 Ml IV 10 ml BID [facility] Administration Sodium Chloride 10 ml 01/07/19 02:38 Sodium Chloride Flush Syringe 10 Ml IV PRN PRN LINE FLUSH Nutrition/Malnutrition Assess - Dietary Evaluation Nutrition/Malnutrition Findings: Nutrition Notes Start: 01/07/19 14:28 Freq: Status: Active Protocol: Document 01/07/19 14:28 RM (Rec: 01/07/19 14:40 RM [id number]) Nutrition Notes Need for Assessment generated from: MD Order Initial or Follow up Assessment Current Diagnosis Hypertension Other Pertinent Diagnosis R/O CVA Current Diet Cardiac Labs/Tests Reviewed Pertinent Medications Reviewed Height 5 ft 3 in Weight 159 kg Usual Body Weight 135.9 kg [place] Body Weight (kg) 52.27 BMI 62.1 Subjective/Other Information Consulted for CVA diet education and nutrition recommendations. Screened for skin risk. No matthew in record. NPO in place earlier today. Cardiac diet ordered later today. Pt fell asleep multiple times during visit d/t medication. Noted lunch at bedside with 1/ 3 eaten. Percent of energy/protein needs met: 30%/26% Burn Absent Trauma Absent #1 Nutrition Diagnosis Inadequate oral intake Etiology decreased appetite As Evidenced by Signs and Symptoms lunch at bedside with 1/3 eaten Is patient on ventilator? No Is Patient Ambulatory and/or Out of Bed Yes REE-([place]-ambulatory/OOB) [ 2858.869 [id number]] Kcal/Kg value to use for calculation 15 Approximate Energy Requirements Using 2385 kcal/Kg Calculation Used for Recommendations Kcal/kg Additional Notes Protein Needs: 106-127g (1-1. 2g/kg 106kg adjBW) Fluid Needs: 1 ml/kcal Nutrition Intervention Change Diet Order: Continue current Add Supplement/Snack (indicate name/kcal Ensure Enlive 1 daily /protein ) Provides kCal: 350 Provides Protein (gm) 20 Goal #1 Meet at least 75% of calorie and protein needs via PO and ONS intakes Anticipated Discharge Needs: Cardiac diet Follow-Up By: 01/08/19 Additional Comments Follow for PO intakes, CVA dit education
[2019-01-08] MEDS: ATARAX PO PRN (15:07)
[2019-01-08] MEDS: ZOLOFT PO SCH (21:53)
[2019-01-09] MEDS: IBUPROFEN PO PRN ×2 (00:03→20:12)
[2019-01-09] MEDS: LOVENOX SUB-Q SCH (09:56)
[2019-01-09] MEDS: BABY ASPIRIN PO SCH (09:56)
[2019-01-09] MEDS: SODIUM CHLORIDE FLUSH SYRINGE 10 ML IV SCH ×2 (09:56→21:02)
[2019-01-09] MEDS: FLEXERIL PO SCH ×2 (09:56→21:01)
[2019-01-09] MEDS ORDERED: NORVASC PO SCH (10:00)
[2019-01-09] MEDS ORDERED: XANAX PO NR (11:00)
[2019-01-09 11:51] LABS: Basophils # (Auto) 0.2 K/mm3 (0.0-0.1); Eosinophils # (Auto) 0.3 K/mm3 (0.0-0.4); Hematocrit 25.3 % (30.3-42.9); Hemoglobin 7.6 gm/dl (10.1-14.3); Lymphocytes % (Auto) 23.4 % (13.4-35.0); Mean Corpuscular HGB Conc 30 % (30-34); Mean Corpuscular Volume 73 fl (79-97); Monocytes # (Auto) 0.5 K/mm3 (0.0-0.8); Monocytes % (Auto) 6.1 % (0.0-7.3); Platelet Count 502 K/mm3 (140-440); Red Blood Count 3.48 M/mm3 (3.65-5.03)
[2019-01-09 11:52] LABS: Red Cell Distribution Width 21.1 % (13.2-15.2)
--- NOTE | 2019-01-09 15:29 | Progress Note ---
Assessment and Plan Assessment and plan: Numbness of left upper and lower extremities - CT head was negative - MRI head was not done because of her body size - Echo done and pending result - Neurology consulted and said it is due to cervical and lumbosacral radiculopathy, he ordered MRI of the cervical and lumbar area - Patient has lumbosacral MRI and Dr infante will read the image. Cervical MRI couldn't be done even in outside MRI machine Anxiety disorder, depression - Continue home Zoloft and hydroxyzine Hypertension - Patient's blood pressure is on the lower side of normal and held amlodipine for now Morbid obesity - Patient counselled about weight loss Chest pain - Cardiac enzymes are negative, EKG normal - Echo EF 50-55% Anemia, microcytic - On admission hemoglobin was 11.7 today to 7.6 - No no bleeding - FOBT, anemia workup - GI consult placed DVT prophylaxis - On Lovenox Disposition - GI evaluation for anemia, pending reading of lumbosacral MRI History Interval history: Patient was seen and evaluated this morning, patient is complaining numbness in the left upper and lower extremity. Complaining chest pain. Hospitalist Physical - Physical exam Narrative exam: Not in cardiopulmonary distress. The patient is morbidly obese. Vital signs as documented. Head exam is unremarkable. No scleral icterus . Neck is without jugular venous distension, thyromegaly, or carotid bruits. Lungs are clear to auscultation. Cardiac exam reveals regular rate and Rhythm. Abdominal exam reveals normal bowel sounds. Extremities are nonedematous and both femoral and pedal pulses are normal. 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 No focal weakness. - Constitutional Vitals: Temp Pulse Resp BP Pulse Ox 98.1 F 82 18 129/76 95 01/09/19 08:05 01/09/19 04:15 01/09/19 09:00 01/09/19 08:05 01/09/19 04:15 Results - Labs CBC & Chem 7: 01/09/19 10:08 01/08/19 05:53 Labs: Laboratory Last Values WBC 8.5 K/mm3 (4.5-11.0) 01/09/19 10:08 RBC 3.48 M/mm3 (3.65-5.03) L 01/09/19 10:08 Hgb 7.6 gm/dl (10.1-14.3) L 01/09/19 10:08 Hct 25.3 % (30.3-42.9) L 01/09/19 10:08 MCV 73 fl (79-97) L 01/09/19 10:08 MCH 22 pg (28-32) L 01/09/19 10:08 MCHC 30 % (30-34) 01/09/19 10:08 RDW 21.1 % (13.2-15.2) H 01/09/19 10:08 Plt Count 502 K/mm3 (140-440) H 01/09/19 10:08 Lymph % (Auto) 23.4 % (13.4-35.0) 01/09/19 10:08 [place] % (Auto) 6.1 % (0.0-7.3) 01/09/19 10:08 Eos % (Auto) 3.0 % (0.0-4.3) 01/09/19 10:08 Baso % (Auto) 2.0 % (0.0-1.8) H 01/09/19 10:08 Lymph # 2.0 K/mm3 (1.2-5.4) 01/09/19 10:08 [place] # 0.5 K/mm3 (0.0-0.8) 01/09/19 10:08 Eos # 0.3 K/mm3 (0.0-0.4) 01/09/19 10:08 Baso # 0.2 K/mm3 (0.0-0.1) H 01/09/19 10:08 Seg Neutrophils % 65.5 % (40.0-70.0) 01/09/19 10:08 Seg Neutrophils # 5.6 K/mm3 (1.8-7.7) 01/09/19 10:08 PT 13.9 Sec. (12.2-14.9) 01/06/19 17:49 INR 1.01 (0.87-1.13) 01/06/19 17:49 APTT 26.7 Sec. (24.2-36.6) 01/06/19 17:49 243.59 ng/mlDDU (0-234) H 01/06/19 17:49 Sodium 138 mmol/L (137-145) 01/08/19 05:53 Potassium 4.5 mmol/L (3.6-5.0) D 01/08/19 05:53 Chloride 103.9 mmol/L (98-107) 01/08/19 05:53 Carbon Dioxide 23 mmol/L (22-30) 01/08/19 05:53 16 mmol/L 01/08/19 05:53 BUN 9 mg/dL (7-17) 01/08/19 05:53 0.7 mg/dL (0.7-1.2) 01/08/19 05:53 Estimated GFR > 60 ml/min 01/08/19 05:53 13 % 01/08/19 05:53 Glucose 102 mg/dL (65-100) H 01/08/19 05:53 5.8 % (4-6) 01/07/19 Unknown Calcium 8.1 mg/dL (8.4-10.2) L 01/08/19 05:53 < 0.010 ng/mL (0.00-0.029) 01/06/19 22:52 Triglycerides 54 mg/dL (2-149) 01/08/19 05:53 Cholesterol 129 mg/dL (50-199) 01/08/19 05:53 83 mg/dL (50-130) 01/08/19 05:53 38 mg/dL (40-59) L 01/08/19 05:53 3.39 % 01/08/19 05:53 HCG, Qual Negative (Negative) 01/06/19 17:49 Yellow (Yellow) 01/07/19 17:40 Clear (Clear) 01/07/19 17:40 5.0 (5.0-7.0) 01/07/19 17:40 Ur Specific [place] 1.019 (1.003-1.030) 01/07/19 17:40 <15 mg/dl mg/dL (Negative) 01/07/19 17:40 Neg mg/dL (Negative) 01/07/19 17:40 Neg mg/dL (Negative) 01/07/19 17:40 Lg (Negative) 01/07/19 17:40 Neg (Negative) 01/07/19 17:40 Neg (Negative) 01/07/19 17:40 2.0 mg/dL (<2.0) 01/07/19 17:40 Ur Leukocyte Esterase Neg (Negative) 01/07/19 17:40 4.0 /HPF (0.0-6.0) 01/07/19 17:40 12.0 /HPF (0.0-6.0) 01/07/19 17:40 U Epithel Cells (Auto) 2.0 /HPF (0-13.0) 01/07/19 17:40 2+ /HPF 01/07/19 17:40 Active Medications - Current Medications Current Medications: Generic Name Dose Route Start Last Admin Trade Name Freq PRN Reason Stop Dose Admin Acetaminophen 650 mg 01/07/19 02:38 Tylenol PO Q4H PRN Pain, Mild (1-3) Aspirin 81 mg 01/08/19 10:00 01/09/19 09:56 Baby Aspirin PO 81 mg QDAY [facility] Administration Atorvastatin Calcium 20 mg 01/07/19 22:00 01/08/19 21:53 Lipitor PO 20 mg QHS [facility] Administration Cyclobenzaprine HCl 5 mg 01/07/19 14:00 01/09/19 09:56 Flexeril PO 5 mg BID [facility] Administration Enoxaparin Sodium 40 mg 01/07/19 10:00 01/09/19 09:56 Lovenox SUB-Q 40 mg QDAY [facility] Administration Hydralazine HCl 10 mg 01/07/19 02:59 Apresoline IV Q4H PRN Blood Pressure Hydroxyzine HCl 50 mg 01/08/19 12:03 01/08/19 15:07 Atarax PO 50 mg TID PRN Administration Itching Ibuprofen 600 mg 01/07/19 15:52 01/09/19 00:03 Ibuprofen PO 600 mg Q8H PRN Administration Pain, Mild (1-3) Nitroglycerin 0.4 mg 01/07/19 02:40 Nitrostat SL Q5M PRN Chest Pain Ondansetron HCl 4 mg 01/07/19 02:38 01/08/19 11:09 Zofran IV 4 mg Q8H PRN Administration Nausea And Vomiting Sertraline HCl 50 mg 01/08/19 22:00 01/08/19 21:53 Zoloft PO 50 mg QHS [facility] Administration Sodium Chloride 10 ml 01/07/19 10:00 01/09/19 09:56 Sodium Chloride Flush Syringe 10 Ml IV 10 ml BID [facility] Administration Sodium Chloride 10 ml 01/07/19 02:38 Sodium Chloride Flush Syringe 10 Ml IV PRN PRN LINE FLUSH Nutrition/Malnutrition Assess - Dietary Evaluation Nutrition/Malnutrition Findings: Nutrition Notes Start: 01/07/19 14:28 Freq: Status: Active Protocol: Document 01/09/19 15:13 RM (Rec: 01/09/19 15:15 RM [id number]) Nutrition Notes Initial or Follow up Brief Note Current Diagnosis Hypertension Other Pertinent Diagnosis Anxiety, Depression Current Diet Cardiac Subjective/Other Information Pt asleep at time of visit. Tech unsure how much pt has been eating. Nutrition Intervention Follow-Up By: 01/10/19 Additional Comments Follow for PO intakes, HTN diet education
--- NOTE | 2019-01-09 16:16 | Progress Note ---
Assessment and Plan This is Dr. Teresa and dictating the progress note on Bhavna Be. Mrs. Be is a 48-year-old female who was seen by me a few days ago for left multiple cervical radiculopathy involving C5-C6 and C7 nerve root as well as lumbar radiculopathy involving L5 and S1 nerve root on the left side. Patient had open MRI of the lumbar spine, however she could not get the open MRI of the cervical spine due to her extreme obesity. I have looked at the MRI of the lumbar spine which showed a disc protrusion at L5-S1 level on both sides. Her symptoms and signs are consistent with left L5-S1 radiculopathy which is further supported by MRI findings. Physical examination. Patient has mild tenderness on the left cervical para spinal muscles as compared to before. He continues to have weak left biceps,left deltoid and left triceps muscles and also weak left plantar flexion and left dorsi flexion of the big toe. Decreased sensation to pinprick on left C5,C6, C7 dermatomes as well as on the left L5 and S1 dermatomes. Straight leg raising was limited to 30 on the left. Impression. Left lumbosacral radiculopathy from disc protrusion in addition to disc degeneration involving facet joints on the left side. Patient is not a melony gical candidate at present because she also has fibroid of the uterus which is causing higher lose blood during every menstrual period contributing to significant anemia. Recommendation. #1 patient will need bariatric surgery to reduce the pressure on her disc and other musculo skeletal joints including facet joints on the left lumbar spine. #2. Patient will need supplemental parenteral iron to boost her hemoglobin so that she may be a candidate for surgery. #3 she also has symptoms of obstructive sleep apnea as she mentioned to me and also her oropharyngeal morphology suggests the strong possibility of sleep apnea. She should be evaluated by a sleep specialist and get sleep study done as an outpatient. Objective - Vital Sign Vital Signs - 12hr 01/09/19 01/09/19 01/09/19 04:15 08:05 09:00 Temperature 98.1 F 98.1 F Pulse Rate 82 Respiratory 18 18 18 Rate Blood Pressure 142/75 129/76 O2 Sat by Pulse 95 Oximetry - Laboratory Findings CBC and BMP: 01/09/19 10:08 01/08/19 05:53 Abnormal Lab Findings: Abnormal Labs 01/06/19 01/06/1919 17:49 17:49 05:53 RBC 5.38 H Hgb Hct MCV 73 L MCH 22 L RDW 21.7 H Plt Count Baso % (Auto) Baso # Seg Neutrophils % 70.8 H D-Dimer 243.59 H Glucose 102 H Calcium 8.1 L HDL Cholesterol 38 L 01/08/19 01/08/19 01/09/19 05:55 07:43 10:08 RBC 3.09 L 3.16 L 3.48 L Hgb 6.9 L D 6.9 L 7.6 L Hct 22.6 L D 23.2 L 25.3 L MCV 73 L 73 L 73 L MCH 22 L 22 L 22 L RDW 21.5 H 21.5 H 21.1 H Plt Count 445 H 450 H 502 H Baso % (Auto) 2.0 H Baso # 0.2 H Seg Neutrophils % D-Dimer Glucose Calcium HDL Cholesterol
[2019-01-09 16:22] LABS: Iron 17 ug/dL (37-170); Total Iron Binding Capacity 345 mcg/dL (250-450)
[2019-01-09] MEDS: ATARAX PO PRN (21:01)
[2019-01-09] MEDS: ZOLOFT PO SCH (21:02)
[2019-01-10 06:33] LABS: Basophils # (Auto) 0.2 K/mm3 (0.0-0.1); Basophils % (Auto) 1.8 % (0.0-1.8); Eosinophils # (Auto) 0.2 K/mm3 (0.0-0.4); Eosinophils % (Auto) 2.4 % (0.0-4.3); Hematocrit 23.6 % (30.3-42.9); Hemoglobin 7.1 gm/dl (10.1-14.3); Lymphocytes # (Auto) 2.4 K/mm3 (1.2-5.4); Lymphocytes % (Auto) 22.8 % (13.4-35.0); Mean Corpuscular HGB Conc 30 % (30-34); Mean Corpuscular Volume 73 fl (79-97); Monocytes # (Auto) 0.7 K/mm3 (0.0-0.8); Monocytes % (Auto) 6.6 % (0.0-7.3); Platelet Count 486 K/mm3 (140-440); Red Blood Count 3.25 M/mm3 (3.65-5.03)
[2019-01-10 06:34] LABS: Red Cell Distribution Width 21.5 % (13.2-15.2)
[2019-01-10] MEDS ORDERED: FERRLECIT 125 MG in NACL 0.9% 100 ML IV ONE (07:00)
[2019-01-10 07:27] LABS: BUN/Creatinine Ratio 14; Blood Urea Nitrogen 11 mg/dL (7-17); Calcium 8.5 mg/dL (8.4-10.2); Hemolysis Index 0
[2019-01-10 07:30] VITALS: BP 133/48
[2019-01-10] MEDS: LOVENOX SUB-Q SCH (09:14)
[2019-01-10] MEDS: FLEXERIL PO SCH (09:14)
[2019-01-10] MEDS: SODIUM CHLORIDE FLUSH SYRINGE 10 ML IV SCH (09:15)
[2019-01-10] MEDS: BABY ASPIRIN PO SCH (09:15)
--- NOTE | 2019-01-10 10:23 | Discharge Summary ---
Providers - Providers Date of Admission: 01/07/19 02:38 Attending physician: CLINTON FLOWER MD 01/07/19 Consult to Physician [CONS] Routine Comment: Consulting Provider: TYLER SOLORIO Physician Instructions: Reason For Exam: left uper and lower extremity paresthesia 01/07/19 02:38 Consult to Dietitian/Nutrition [CONS] Routine Physician Instructions: Reason For Exam: Reason for Consult: Nutrition Recommendations Reason for Consult: Diet education Occupational Therapy Evaluate and Treat [CONS] Routine Comment: Reason For Exam: Neuro deficits Physical Therapy Evaluation and Treat [CONS] Routine Comment: Reason For Exam: Neuro deficits 01/09/19 15:22 Consult to Physician [CONS] Routine Comment: hgb drop from 11 to 7 Consulting Provider: GEORGE GONZALEZ Physician Instructions: Reason For Exam: anemia [facility] Reason for admission: Chest pain, Anemia, Left sided numbness Condition: Stable Pertinent studies: CT head CT cervical spine VQ scan MRI of the lumbosacral spine Hospital course: Admission 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 Pt states that her symptoms began when she woke up from a nap around 4:30pm yesterday afternoon. She experienced left sided blurred vision, left- sided neck pain, left-sided nonradiating chest pain, left calf pain, and left arm and left leg numbness. She states that her symptoms have not resolved. She describes her chest pain as sharp and rates it 9/10. Her chest pain is aggravated with movement and relieved with rest. She reports that her headache is mild 3/10, and there are no aggravating or relieving factors. Pt reports having a stress test done last year and it was negative. Patient is admitted to the floor and VQ scan was negative, CT head was negative, CT cervical spine showed degenerative disc disease, MRI couldn't be done because patient is morbidly obese. We sent the patient for open MRI even there they can only do a lumbosacral MRI but couldn't do the cervical MRI. Patient was evaluated by neurology and CVA was ruled out and the diagnosis is cervical and lumbosacral radiculopathy. Patient was advised by neurology to decrease weight, exercise and diet. Blood work showed that the patient is anemic, anemia workup was done and showed she has iron deficiency anemia. Patient said she has history of fibroids and heavy menses. I offered blood transfusion but the patient declined because she is Johva witness. I gave her iron infusion and discharged her with by mouth iron tablets. Appropriate medication scripts were given at the time of discharge. Patient's questions and concerns were addressed at the bedside. Patient is hemodynamically stable at the time of discharge. Patient advised about weight loss and giving resources including bariatric surgery, diet, exercise. Disposition: DC-01 TO HOME OR SELFCARE Time spent for discharge: 32minutes - Discharge Diagnoses (1) Iron deficiency anemia due to chronic blood loss Status: Acute (2) HTN (hypertension) Status: Acute (3) Left sided numbness Status: Acute (4) Left-sided chest pain Status: Acute (5) Obesity Status: Acute Core Measure Documentation - Palliative Care Palliative Care/ Comfort Measures: Not Applicable - Core Measures Any of the following diagnoses?: none Exam - Physical Exam Narrative exam: Not in cardiopulmonary distress. The patient is morbidly obese. Vital signs as documented. Head exam is unremarkable. No scleral icterus . Neck is without jugular venous distension, thyromegaly, or carotid bruits. Lungs are clear to auscultation. Cardiac exam reveals regular rate and Rhythm. Abdominal exam reveals normal bowel sounds. Extremities are nonedematous and both femoral and pedal pulses are normal. 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 No focal weakness. - Constitutional Vitals: Temp Pulse Resp BP Pulse Ox 98.3 F 67 18 133/48 97 01/10/19 07:16 01/10/19 07:16 01/10/19 07:16 01/10/19 07:16 01/10/19 07:16 Plan Activity: no restrictions Weight Bearing Status: Non-Weight Bearing Diet: low fat, low cholesterol, low salt, low carbohydrate Follow up with: CRYSTAL CONTRERAS MD [Primary Care Provider] - 3-5 Days Prescriptions: AtorvaSTATin [Lipitor] 20 mg PO QHS #30 tablet Aspirin [Aspirin BABY CHEW TAB] 81 mg PO QDAY #30 tab.chew Ferrous Sulfate [Feosol 325 MG tab] 325 mg PO BID #60 tablet Cyclobenzaprine [Flexeril 10 MG TAB] 5 mg PO BID #60 tablet Ibuprofen [Motrin 600 MG tab] 600 mg PO Q8H PRN #20 tablet PRN Reason: Pain, Mild (1-3) Nitroglycerin [Nitrostat] 0.4 mg SL Q5M PRN #30 tablet PRN Reason: Chest Pain amLODIPine [Norvasc] 10 mg PO DAILY #30 tablet
== END 2019-01-10 14:09 | disposition home or self-care (01) | DRG 552 ==
LOC: ED 17:12 → 4A 01-07 02:38
PROVIDERS: ADMIT Internal Medicine; ATTEND Internal Medicine
DX: M51.17 Intervertebral disc disorders with radiculopathy, lumbosacral region (principal); Z68.44 Body mass index [BMI] 60.0-69.9, adult; R07.9 Chest pain, unspecified; D50.0 Iron deficiency anemia secondary to blood loss (chronic); M50.123 Cervical disc disorder at C6-C7 level with radiculopathy; R20.0 Anesthesia of skin; I10 Essential (primary) hypertension; E66.01 Morbid (severe) obesity due to excess calories; F41.9 Anxiety disorder, unspecified; F32.9 Major depressive disorder, single episode, unspecified
CPT/HCPCS: 36415; 70450; 71046; 72125; 78582; 80048; 80061; 81001; 83036; 83550; 84484; 84703; 85025; 85027; 85379; 85610; 85730; 93005; 93010; 93306; 93970; 96372; 96374; 96375; G0378; A9270-GY; A9540; A9558; J1170; J1200; J1650; J1885; J2270; J2405; J2916